=== PATIENT | female | born 1980 | race Caucasian/White ===

== ENCOUNTER → 2017-05-14 | Outpatient (CLI) | payer BC | LOC: ZCOL.LAB 17:33 | DX: J35.8 Other chronic diseases of tonsils and adenoids (principal) ==

== ENCOUNTER → 2017-10-10 | Outpatient (CLI) | payer BC ==
[~2017-10-10] MED LIST: CLARITIN 1010 MG/TAB PO; TRINESSA LO TA1 EACH PO; TYLENOL 500MG500 MG PO; XANAX 0.5MG0.5 MG PO
== END ==
LOC: COL.RAD 09:54
DX: R19.09 Other intra-abdominal and pelvic swelling, mass and lump (principal); R59.0 Localized enlarged lymph nodes
CPT/HCPCS: Q9967

== ENCOUNTER → 2017-10-10 | Outpatient (CLI) | payer BC | LOC: COL.RAD 08:06 | DX: R19.09 Other intra-abdominal and pelvic swelling, mass and lump (principal); R10.11 Right upper quadrant pain ==

== ENCOUNTER → 2017-10-14 | Outpatient (CLI) | payer BC ==
[2017-10-14] VITALS (12 sets, daily range): BP systolic 124–146; BP diastolic 66–85; PULSE 86–100
[~2017-10-14] VITALS: Ht 170.2 cm; Wt 111.4 kg
== END ==
LOC: COL.RAD 13:23
DX: C85.98 Non-Hodgkin lymphoma, unspecified, lymph nodes of multiple sites (principal); R19.07 Generalized intra-abdominal and pelvic swelling, mass and lump
CPT/HCPCS: 27584

== ENCOUNTER → 2018-01-19 | Outpatient (CLI) | payer BC | LOC: COL.RAD 12:17 | DX: C85.90 Non-Hodgkin lymphoma, unspecified, unspecified site (principal); R14.0 Abdominal distension (gaseous) ==

== ENCOUNTER 2018-10-16 10:37 | Emergency (ER) | payer BC ==
[~2018-10-16] VITALS: Ht 170.2 cm; Wt 99.0 kg
[2018-10-16 10:49] VITALS: TEMP 98
[2018-10-16 11:39] LABS: MEAN CELL VOLUME 92 fl (80.0-100.0); MEAN CORPUSCULAR HGB CONC 32 g/dl (33.0-37.0); MEAN PLATELET VOLUME 9.8 fl (7.4-10.4); PLATELET COUNT 271 K/mm3 (130-400); REDCELL DISTRIBUTION WIDTH-CV 16.9 % (11.5-14.5)
[2018-10-16 11:42] LABS: HEMATOCRIT 30.4 % (37.0-47.0); HEMOGLOBIN 9.8 g/dl (12.5-16.0); MEAN CORPUSCULAR HEMOGLOBIN 30 pg (27.0-31.0)
[2018-10-16 11:47] LABS: INR 1.1 (0.8-3.0); PROTHROMBIN TIME 12.3 SECONDS (9.7-12.8)
[2018-10-16 11:49] LABS: ALBUMIN 3.4 gm/dL (3.5-5.0); BILIRUBIN,TOTAL 0.6 mg/dL (0.0-1.0); CALCIUM 9.1 mg/dL (8.4-10.2); CREATININE, serum 0.69 mg/dL (0.52-1.25); POTASSIUM 3.1 mmol/L (3.4-5.0); TOTAL PROTEIN 6.2 gm/dL (6.4-8.2)
[2018-10-16 11:56] LABS: ANISOCYTOSIS 1+; BAND 15 % (0-10); EOSINOPHIL 1 % (0-4); LYMPHOCYTE 4 % (20.0-51.0); METAMYELOCYTE 1 % (0-0); NEUTROPHILS 73 % (42.0-75.2); PLATELET ESTIMATE NORMAL (NORMAL)
[2018-10-16 13:32] LABS: PLEURAL FLUID RBC 2000 /mm3 (0-0); PLEURAL FLUID WBC 915 /mm3
[2018-10-16 13:34] LABS: PLEURAL FLUID APPEARANCE HAZY; PLEURAL FLUID COLOR YELLOW
[2018-10-16 13:37] LABS: TOTAL PROTEIN,PLEURAL FLUID 4.5 gm/dL
[2018-10-16 16:02] VITALS: BP 117/80; PULSE 110
== END 2018-10-16 16:05 | disposition home or self-care (01) ==
LOC: COL.ER 10:37
PROVIDERS: Emergency Medicine; Physician Assistant
DX: J90 Pleural effusion, not elsewhere classified (principal); R19.07 Generalized intra-abdominal and pelvic swelling, mass and lump; Z85.72 Personal history of non-Hodgkin lymphomas
CPT/HCPCS: J1644; Q9967